=== PATIENT | male | born 1945 | race Caucasian/White ===

== ENCOUNTER → 2016-09-14 | Outpatient (CLI) | payer MEDICARE, OTHER | LOC: M SMT 12:24 | PROVIDERS: ATTEND Urology | DX: C61 Malignant neoplasm of prostate (principal) ==

== ENCOUNTER → 2016-09-14 | Outpatient (CLI) | payer MEDICARE, OTHER ==
--- NOTE | 2016-09-14 15:16 | REP ---
CT ABDOMEN: HISTORY: Abdominal aortic aneurysm. There are no prior CTs for comparison. Evidently priors from an outside institution are being mailed, however, a stat report was requested. The lack of intravenous contrast significantly decreases the sensitivity of evaluating the aorta. Emphysematous changes are seen in the lung bases. There is a large abdominal aortic aneurysm having a maximal AP dimension of 4.6 cm and a maximal transverse dimension of 4.6 cm and a length of approximately 10 cm. The aneurysmal dilatation spans both above and below the renal arteries. There is abnormally central displaced calcium involving the distal abdominal aorta just proximal to the aortoiliac bifurcation. As such, a dissection cannot be ruled out. In addition, there appears to be double density in the aorta, possibly secondary to dissection or mural thrombus. The lack of intravenous contrast cannot differentiate between the two processes. Limited evaluation of the solid intraabdominal organs and gallbladder show no gross abnormalities. Limited evaluation of the pancreas and adrenal glands show no gross abnormalities. Multiple hypodensities are seen in the right kidney and there is a hyperdensity seen arising from the inferior pole of the left kidney. These might represent cysts, but without intravenous contrast that cannot be stated with certainty. There is no evidence of a gross abnormality involving the bowel loops or their mesenteries. No free fluid or free air is seen in the abdomen or retroperitoneum. There is no evidence of free fluid in the pelvis. There is prostatomegaly and corpora amylacea. There appears to be diffuse muscular wasting and atrophy along with spinal degenerative changes and suspected bony demineralization. IMPRESSION: Large abdominal aortic aneurysm as described above. Due to the size of the aortic aneurysm and the findings involved, a stat report was generated at the time of this dictation, although I have no priors for comparison. Other findings as described above. Signed by Heber Murphy DO 09/14/2016 03:28 P
== END ==
LOC: M RAD 11:18
PROVIDERS: ATTEND Surgery Vascular Surgery
DX: I71.4 Abdominal aortic aneurysm, without rupture (principal)

== ENCOUNTER → 2019-03-27 | Outpatient (REF) | payer MEDICARE, OTHER ==
[2019-03-27 18:04] LABS: APPEARANCE, URINE CLEAR (CLEAR); BACTERIA, URINE AUTO NEGATIVE (NEGATIVE); BILIRUBIN, URINE AUTO NEGATIVE (NEGATIVE); BLOOD, URINE BLOOD NEGATIVE (NEGATIVE); COLOR, URINE YELLOW (YELLOW); GLUCOSE, URINE (UA) AUTO NEGATIVE (NEGATIVE); KETONE, URINE AUTO NEGATIVE (NEGATIVE); LEUKOCYTE ESTERASE, URINE AUTO NEGATIVE (NEGATIVE); NITRITE, URINE AUTO NEGATIVE (NEGATIVE); PROTEIN, URINE AUTO NEGATIVE (NEGATIVE); RBC, URINE AUTO 0 /HPF (0-3); SQUAMOUS EPITHELIAL CELL UR AU 0 /HPF (0-6); UROBILINOGEN, URINE AUTO 0.2 mg/dL (0.0-2.0); WBC, URINE AUTO 2 /HPF (0-3)
== END ==
LOC: M SMT 17:16
PROVIDERS: ATTEND Nurse Practitioner Women's Health
DX: N40.1 Benign prostatic hyperplasia with lower urinary tract symptoms (principal)
CPT/HCPCS: 81001; 87086; G0463

== ENCOUNTER → 2020-04-29 | Outpatient (CLI) | payer MEDICARE ==
--- NOTE | 2020-04-29 13:01 | REPPI ---
INDICATION: ELEVATED PSA. COMPARISON: 06/07/2014. TECHNIQUE: Real-time sonographic evaluation of prostate performed utilizing transrectal probe. FINDINGS: The prostate measures 3.7 x 3.8 x 5.3 cm, total volume 38.8 mL. Echotexture is heterogeneous with scattered small cysts and calcifications. A hypoechoic nodule in the right mid gland measures 7 x 8 x 12 mm and another anteriorly in the midline measures 13 x 7 x 8 mm. Seminal vesicles are symmetrical. IMPRESSION: Ultrasound guidance was provided for Dr. Eubanks who performed ultrasound-guided biopsy of the prostate. <Electronically signed by Taurus Vega > 04/29/20 [id number]
== END ==
LOC: M SMT PRO 08:46
PROVIDERS: ATTEND Urology
DX: C61 Malignant neoplasm of prostate (principal)
CPT/HCPCS: 55700; 76872; 76942; G0416

== ENCOUNTER 2021-02-18 12:36 | Outpatient (RCR) | payer MEDICARE | END 2021-02-19 | LOC: M PT 12:36 | PROVIDERS: ATTEND Internal Medicine Cardiovascular Disease | DX: Z89.611 Acquired absence of right leg above knee (principal) ==

== ENCOUNTER 2021-03-18 14:15 | Outpatient (RCR) | payer MEDICARE | END 2021-03-22 | LOC: M PT 14:15 | PROVIDERS: ATTEND Internal Medicine Cardiovascular Disease | DX: Z89.611 Acquired absence of right leg above knee (principal) ==

== ENCOUNTER 2021-04-15 13:25 | Outpatient (RCR) | payer MEDICARE | END 2021-04-21 | LOC: M PT 13:25 | PROVIDERS: ATTEND Internal Medicine Cardiovascular Disease | DX: Z89.611 Acquired absence of right leg above knee (principal); Z97.13 Presence of artificial right leg (complete) (partial) ==

== ENCOUNTER 2021-05-11 13:30 | Outpatient (RCR) | payer MEDICARE | END 2021-05-22 | LOC: M PT 13:30 | PROVIDERS: ATTEND Internal Medicine Cardiovascular Disease | DX: Z89.611 Acquired absence of right leg above knee (principal) ==

== ENCOUNTER → 2022-08-16 | Outpatient (REF) | payer MEDICARE ==
[2022-08-16 09:54] LABS: HEMATOCRIT 43.8 % (42.0-52.0); HEMOGLOBIN 13.9 g/dl (13.5-17.5); MEAN CORPUSCULAR HEMOGLOBIN 29.8 pg (27.0-33.0); MEAN CORPUSCULAR HGB CONC 31.7 g/dl (32.0-36.5); PLATELET COUNT, AUTOMATED 384 10^3/uL (150-450); RED BLOOD COUNT 4.66 10^6/uL (4.30-6.10); WHITE BLOOD COUNT 11.4 10^3/uL (4.0-10.0)
[2022-08-16 10:20] LABS: ALBUMIN 2.5 G/DL (3.2-5.2); ALKALINE PHOSPHATASE 102 U/L (46-116); ALT/SGPT 48 U/L (7.0-40); AST/SGOT 23 U/L (<34); BILIRUBIN,TOTAL 0.8 MG/DL (0.3-1.2); BLOOD UREA NITROGEN 21 MG/DL (9-23); CALCIUM LEVEL 8.4 MG/DL (8.3-10.6); CARBON DIOXIDE LEVEL 30 MMOL/L (20-31); CHLORIDE LEVEL 107 MMOL/L (98-107); CHOLESTEROL LEVEL 139 MG/DL (<200); CHOLESTEROL RISK RATIO 2.38 (<5); CREATININE FOR GFR 0.36 MG/DL (0.70-1.30); GLOMERULAR FILTRATION RATE > 60.0 (>42); GLUCOSE, FASTING 119 MG/DL (74-106); HDL CHOLESTEROL 58.4 MG/DL (>40); IRON (FE) 32 UG/DL (65-175); LDL CHOLESTEROL 60.6 MG/DL (<100); NON-HDL-C 80.6 MG/DL; POTASSIUM SERUM 4.1 MMOL/L (3.5-5.1); SODIUM LEVEL 143 MMOL/L (136-145); TOTAL PROTEIN 5.4 G/DL (5.7-8.2); TRIGLYCERIDES LEVEL 100 MG/DL (<150)
[2022-08-16 10:22] LABS: FERRITIN 334.2 NG/ML (10.5-307.3)
== END ==
LOC: SKLAB2 08:09
PROVIDERS: ATTEND Internal Medicine
DX: I10 Essential (primary) hypertension (principal)

== ENCOUNTER → 2022-08-18 | Outpatient (REF) | payer MEDICARE ==
[~2022-08-18] MED LIST: ACET-907 PO; AMLO1TAB24 PO; CLOP75TA99 PO; DULC10SU2 PR; ENSU1LIQ50 PO; FLEEENE12 PR; FLOM0.4C39 PO; IPRA0.00 INH; LISI40TA4 PO; METO50TA7 PO; MILKSUS3 PO; NICO1DIS11 TD; QUET1TAB17 PO; SIMV40TA20 PO
== END ==
LOC: EDSTATUS 14:00 → SKLAB2 14:12 → M RAD 14:12
PROVIDERS: ATTEND Internal Medicine
DX: I71.40 Abdominal aortic aneurysm, without rupture, unspecified (principal); I74.09 Other arterial embolism and thrombosis of abdominal aorta

== ENCOUNTER 2022-08-24 16:19 | Inpatient (IN) | payer MEDICARE ==
[~2022-08-24] VITALS: Ht 175.3 cm; Wt 37.0 kg
[2022-08-24 17:45] LABS: ALBUMIN 3.2 G/DL (3.2-5.2); ALKALINE PHOSPHATASE 132 U/L (46-116); ALT/SGPT 21 U/L (7.0-40); AST/SGOT 25 U/L (<34); BILIRUBIN,TOTAL 0.8 MG/DL (0.3-1.2); BLOOD UREA NITROGEN 28 MG/DL (9-23); CALCIUM LEVEL 9.7 MG/DL (8.3-10.6); CARBON DIOXIDE LEVEL 30 MMOL/L (20-31); CHLORIDE LEVEL 106 MMOL/L (98-107); CREATININE FOR GFR 0.43 MG/DL (0.70-1.30); GLOMERULAR FILTRATION RATE > 60.0 (>42); GLUCOSE, FASTING 157 MG/DL (74-106); POTASSIUM SERUM 4.3 MMOL/L (3.5-5.1); SODIUM LEVEL 142 MMOL/L (136-145); TOTAL PROTEIN 6.7 G/DL (5.7-8.2)
[2022-08-24 17:52] LABS: HEMATOCRIT 49.7 % (42.0-52.0); HEMOGLOBIN 15.9 g/dl (13.5-17.5); MEAN CORPUSCULAR HEMOGLOBIN 29.4 pg (27.0-33.0); PLATELET COUNT, AUTOMATED 520 10^3/uL (150-450); WHITE BLOOD COUNT 12.4 10^3/uL (4.0-10.0)
[2022-08-24] MEDS ORDERED: ISOVUE-370 76% 100ML VIAL As Ordered ONE (19:13)
[2022-08-24] MEDS ORDERED: ONDANSETRON 4MG 2ML VIAL IV ONE (19:20)
[2022-08-24] MEDS ORDERED: ONDANSETRON 4MG 2ML VIAL As Ordered ONE (19:20)
[2022-08-24 20:13] LABS: CK-MB VALUE MASS < 1.0 NG/ML (<3.6); CPK CREATINE PHOSPHOKINASE 41 U/L (46-171); MB/CK RELATIVE INDEX 2.43 (< OR =4)
[2022-08-24 23:02] LABS: RSV AMPLIFICATION NEGATIVE (NEGATIVE)
[2022-08-24 23:30] VITALS: BP 152/89
[2022-08-25] MEDS ORDERED: ENSU1LIQ50 PO (00:48)
[2022-08-25] MEDS ORDERED: FLOM0.4C39 PO (00:48)
[2022-08-25] MEDS ORDERED: CLOP75TA99 PO (00:48)
[2022-08-25] MEDS ORDERED: IPRA0.00 INH (00:48)
[2022-08-25] MEDS ORDERED: NICO1DIS11 TD (00:48)
[2022-08-25] MEDS ORDERED: MILKSUS3 PO (00:48)
[2022-08-25] MEDS ORDERED: FLEEENE12 PR (00:48)
[2022-08-25] MEDS ORDERED: LISI40TA4 PO (00:48)
[2022-08-25] MEDS ORDERED: AMLO1TAB24 PO (00:48)
[2022-08-25] MEDS ORDERED: QUET1TAB17 PO (00:48)
[2022-08-25] MEDS ORDERED: METO50TA7 PO (00:48)
[2022-08-25] MEDS ORDERED: SIMV40TA20 PO (00:48)
[2022-08-25] MEDS ORDERED: DULC10SU2 PR (00:48)
[2022-08-25] MEDS ORDERED: ACET-907 PO (00:48)
[2022-08-25] MEDS ORDERED: HOME MED LIST COMPLETE! XX SCH (00:50)
[2022-08-25] MEDS ORDERED: ONDANSETRON 4MG 2ML VIAL IV PRN (01:00)
[2022-08-25] MEDS ORDERED: NS 1,000 ML IV SCH (01:00)
[2022-08-25] MEDS: MORPHINE 2 MG/ML 1ML VIAL IV PRN ×3 (08:56→19:31)
[2022-08-25] MEDS: ONDANSETRON 4MG 2ML VIAL IV PRN ×2 (08:57→16:54)
[2022-08-25] MEDS ORDERED: LORazepam 2 MG/ML 1ML VIAL IV PRN (09:00)
[2022-08-25] MEDS ORDERED: ATROPINE SULFATE 1% OPHTH SOLN 2ML BTL SL PRN (09:00)
[2022-08-25] MEDS ORDERED: MORPHINE 10MG/0.5ML ORAL CONCENTRATE SOLUTION U/D SL PRN (09:00)
[2022-08-25] MEDS ORDERED: LORazepam 1 MG TAB PO PRN (09:05)
[2022-08-25] MEDS ORDERED: PROMETHAZINE 25MG/ML 1ML VIAL IV PRN (09:05)
[2022-08-25] MEDS: METOCLOPRAMIDE INJ 10MG/2ML VIAL IV PRN ×2 (09:44→19:30)
[2022-08-25] MEDS: SCOPOLAMINE 1MG TRANSDERMAL PATCH TOP SCH (09:44)
[2022-08-26] MEDS: MORPHINE 2 MG/ML 1ML VIAL IV PRN ×3 (09:26→21:13)
[2022-08-27] MEDS: MORPHINE 2 MG/ML 1ML VIAL IV PRN ×2 (08:57→21:09)
[2022-08-28] MEDS: MORPHINE 2 MG/ML 1ML VIAL IV PRN (05:45)
[2022-08-28] MEDS: SCOPOLAMINE 1MG TRANSDERMAL PATCH TOP SCH (08:31)
[2022-08-28] MEDS ORDERED: MORPHINE 10MG/0.5ML ORAL CONCENTRATE SOLUTION U/D SL PRN (09:25)
== END 2022-08-28 10:34 | disposition expired | DRG 380 ==
LOC: M ED 16:19 → M ED INP 23:10 → M MSPAV 08-25 01:05
PROVIDERS: ADMIT Internal Medicine; ATTEND Internal Medicine
DX: K31.1 Adult hypertrophic pyloric stenosis (principal); E43 Unspecified severe protein-calorie malnutrition; J15.6 Pneumonia due to other Gram-negative bacteria; I71.33 Infrarenal abdominal aortic aneurysm, ruptured; J96.00 Acute respiratory failure, unspecified whether with hypoxia or hypercapnia; K92.1 Melena; C34.31 Malignant neoplasm of lower lobe, right bronchus or lung; Z68.1 Body mass index [BMI] 19.9 or less, adult; E46 Unspecified protein-calorie malnutrition; Z51.5 Encounter for palliative care; Z66 Do not resuscitate; E78.5 Hyperlipidemia, unspecified; I25.10 Atherosclerotic heart disease of native coronary artery without angina pectoris; J43.2 Centrilobular emphysema; R91.1 Solitary pulmonary nodule; I73.9 Peripheral vascular disease, unspecified; I10 Essential (primary) hypertension; I25.2 Old myocardial infarction; R63.4 Abnormal weight loss; C61 Malignant neoplasm of prostate; R57.8 Other shock; I49.01 Ventricular fibrillation; I16.0 Hypertensive urgency; N32.0 Bladder-neck obstruction; Z89.611 Acquired absence of right leg above knee; Z95.5 Presence of coronary angioplasty implant and graft; Z98.41 Cataract extraction status, right eye; Z98.42 Cataract extraction status, left eye; Z87.891 Personal history of nicotine dependence